=== PATIENT | female | born 1990 | race Caucasian/White ===

== ENCOUNTER 2021-10-20 03:52 | Emergency (ER) | payer OTHER ==
[~2021-10-20] VITALS: Ht 165.1 cm; Wt 130.2 kg
[2021-10-20 04:06] VITALS: BP 139/87
--- NOTE | 2021-10-20 04:06 | NUR ---
Note undone in EDM - 10/20/21 at 0620 by CECIL Patient discharged with v/s stable. Written and verbal after care instructions given and explained. Patient alert, oriented and verbalized understanding of instructions. Ambulatory with steady gait. All questions addressed prior to discharge. ID band removed. Patient advised to follow up with PMD. Rx of SAMIR STANTON given. Patient educated on indication of medication including possible reaction and side effects. Opportunity to ask questions provided and answered.
--- NOTE | 2021-10-20 04:18 | NUR ---
patient ambulated to bed 9
--- NOTE | 2021-10-20 04:23 | NUR ---
31 yo/f bib self w c/o epigastric pain sharp x1 day int non rad s/p eating a hot dog. Pt denies any fevers/chills, n/v/d, or urinary problems. Pt took alkazeltzer w mild relief. ERMD at bedside assessing pt. PMH: denies Allergies: denies
--- NOTE | 2021-10-20 04:30 | NUR ---
pt ambulated to bathroom w steady gait.
[2021-10-20] MEDS ORDERED: DICYCLOMINE HCL LIQUID 20 MG, ALUMINUM HYD/MAG/SIMETHICONE 30 ML, LIDOCAINE VISCOUS 2% ... PO ONE ×3 (04:40)
[2021-10-20] MEDS ORDERED: KETOROLAC 30 MG/ML VIAL IM ONE (04:40)
[2021-10-20] MEDS ORDERED: ALUMINUM HYD/MAG/SIMETHICONE 30 ML UDC ONE (04:45)
[2021-10-20] MEDS ORDERED: DICYCLOMINE HCL LIQUID 10 MG/5 ML UDC ONE (04:45)
--- NOTE | 2021-10-20 05:07 | NUR ---
BLOOD DRAWN HANDED TO [facility] FROM LAB
[2021-10-20 05:21] LABS: BASOPHILS # (AUTO) 0.1 K/uL (0.00-0.22); BASOPHILS % (AUTO) 0.6 % (0.0-2.0); EOSINOPHILS # (AUTO) 0.2 K/uL (0-0.4); EOSINOPHILS % (AUTO) 1.4 % (0.0-4.0); HEMATOCRIT 41.3 % (36-48); HEMOGLOBIN 13.5 g/dL (12.0-16.0); LYMPHOCYTES # (AUTO) 2.6 K/uL (2.5-16.5); LYMPHOCYTES % (AUTO) 24.3 % (20.5-51.1); MEAN CORPUSCULAR HEMOGLOBIN 28 pg (27-31); MEAN CORPUSCULAR HGB CONC 33 g/dL (33-37); MEAN CORPUSCULAR VOLUME 86.6 fL (80-94); MONOCYTES # (AUTO) 0.6 K/uL (0.8-1.0); NEUTROPHILS # (AUTO) 7.4 K/uL (1.8-7.7); NEUTROPHILS % (AUTO) 67.7 % (42.2-75.2); PLATELET COUNT (AUTO) 353 K/uL (140-450); RED BLOOD CELL COUNT(AUTO) 4.77 MIL/uL (4.20-5.40); RED CELL DISTRIBUTION WIDTH 13.8 % (11.6-13.7); WHITE BLOOD COUNT (AUTO) 10.8 K/uL (4.8-10.8)
[2021-10-20 05:42] LABS: ALBUMIN 3.3 g/dL (3.4-5.0); ANION GAP 10.9 (8-16); CARBON DIOXIDE 26.9 mmol/L (21-32); CREATININE 0.8 mg/dL (0.6-1.3); POTASSIUM 3.8 mmol/L (3.5-5.1); TOTAL BILIRUBIN 0.4 mg/dL (0.0-1.0)
[2021-10-20] MEDS ORDERED: MAG-27 PO (05:54)
[2021-10-20] MEDS ORDERED: BEN10 PO (05:54)
[2021-10-20 06:11] VITALS: BP 139/87
--- NOTE | 2021-10-20 06:11 | NUR ---
Patient discharged with v/s stable. Written and verbal after care instructions given and explained. Patient alert, oriented and verbalized understanding of instructions. Ambulatory with steady gait. All questions addressed prior to discharge. ID band removed. Patient advised to follow up with PMD. Rx of SAMIR STANTON given. Patient educated on indication of medication including possible reaction and side effects. Opportunity to ask questions provided and answered.
== END 2021-10-20 06:11 | disposition home or self-care (01) ==
LOC: MED 03:52
DX: R10.10 Upper abdominal pain, unspecified (principal); R06.00 Dyspnea, unspecified; Z79.899 Other long term (current) drug therapy
CPT/HCPCS: 36415; 80053; 81002; 81025; 83690; 85025; 96372; 99283; J1885

== ENCOUNTER 2021-10-22 09:47 | Emergency (ER) | payer OTHER ==
[~2021-10-22] VITALS: Ht 170.2 cm; Wt 130.6 kg
[~2021-10-22 09:47] MED LIST: BEN10 PO; MAG-27 PO
[2021-10-22 09:48] VITALS: BP 133/78
--- NOTE | 2021-10-22 10:01 | NUR ---
PT AMBULATED TO ER BED 10
--- NOTE | 2021-10-22 10:19 | NUR ---
31 y/o female, c/o epigastric pain 01/27 that started 0800 with nausea and vomiting. denies anyone else sick at home with same s/s. PT STATED ATE YOGURT THIS MORNING AND THEN TOOK DICYCLOMINE. AFTER HER STOMACH GOT UPSET AND SHE VOMITED SHORTHLY AFTER THIS MORNING. NOT ACTIVELY NAUSEOUS OR VOMITING. PT IS NOT EXPERIENCING PAIN ANYWHERE ELSE. PT RESTING IN BED. pmh: denies nka med: dicyclomine
--- NOTE | 2021-10-22 11:03 | NUR ---
DR BROWN AT BEDSIDE FOR EVAL
[2021-10-22] MEDS ORDERED: ONDANSETRON 4 MG TAB PO ONE (11:10)
[2021-10-22] MEDS ORDERED: DICYCLOMINE HCL LIQUID 20 MG, ALUMINUM HYD/MAG/SIMETHICONE 30 ML, LIDOCAINE VISCOUS 2% ... PO ONE ×3 (11:15)
[2021-10-22] MEDS ORDERED: ALUMINUM HYD/MAG/SIMETHICONE 30 ML UDC ONE (11:21)
[2021-10-22] MEDS ORDERED: DICYCLOMINE HCL LIQUID 10 MG/5 ML UDC ONE (11:21)
--- NOTE | 2021-10-22 11:44 | NUR ---
LAB AT BEDSIDE
[2021-10-22 11:53] LABS: BASOPHILS # (AUTO) 0.1 K/uL (0.00-0.22); BASOPHILS % (AUTO) 0.5 % (0.0-2.0); EOSINOPHILS # (AUTO) 0.1 K/uL (0-0.4); EOSINOPHILS % (AUTO) 0.7 % (0.0-4.0); HEMATOCRIT 40.2 % (36-48); HEMOGLOBIN 13.2 g/dL (12.0-16.0); LYMPHOCYTES # (AUTO) 1.8 K/uL (2.5-16.5); LYMPHOCYTES % (AUTO) 12.7 % (20.5-51.1); MEAN CORPUSCULAR HEMOGLOBIN 29 pg (27-31); MEAN CORPUSCULAR HGB CONC 33 g/dL (33-37); MEAN CORPUSCULAR VOLUME 86.6 fL (80-94); MONOCYTES # (AUTO) 0.7 K/uL (0.8-1.0); MONOCYTES % (AUTO) 5.2 % (1.7-9.3); NEUTROPHILS # (AUTO) 11.3 K/uL (1.8-7.7); NEUTROPHILS % (AUTO) 80.9 % (42.2-75.2); PLATELET COUNT (AUTO) 373 K/uL (140-450); RED BLOOD CELL COUNT(AUTO) 4.65 MIL/uL (4.20-5.40); RED CELL DISTRIBUTION WIDTH 13.8 % (11.6-13.7); WHITE BLOOD COUNT (AUTO) 13.9 K/uL (4.8-10.8)
[2021-10-22 12:12] LABS: ALBUMIN 3.4 g/dL (3.4-5.0); ANION GAP 11.3 (8-16); CARBON DIOXIDE 26.8 mmol/L (21-32); CREATININE 0.8 mg/dL (0.6-1.3); POTASSIUM 4.1 mmol/L (3.5-5.1); TOTAL BILIRUBIN 0.5 mg/dL (0.0-1.0)
--- NOTE | 2021-10-22 12:18 | NUR ---
ULTRASOUND AT BEDSIDE
[2021-10-22] MEDS ORDERED: ACET-8386 PO (13:53)
[2021-10-22] MEDS ORDERED: HYDROcodone/APAP 5/325 MG 1 TAB TAB PO ONE (13:55)
[2021-10-22 14:21] VITALS: BP 131/77
--- NOTE | 2021-10-22 14:21 | NUR ---
Patient discharged with v/s stable. Written and verbal after care instructions ABOUT CHOLELITHIASIS given and explained. Patient alert, oriented and verbalized understanding of instructions. Ambulatory with steady gait. All questions addressed prior to discharge. ID band removed. Patient advised to follow up with PMD. Rx of NORCO 5-325MG given. Patient educated on indication of medication including possible reaction and side effects. Opportunity to ask questions provided and answered.
== END 2021-10-22 14:21 | disposition home or self-care (01) ==
LOC: MED 09:47
DX: K80.20 Calculus of gallbladder without cholecystitis without obstruction (principal); Z79.899 Other long term (current) drug therapy
CPT/HCPCS: 36415; 76705; 80053; 81002; 81025; 82150; 83690; 85025; 99284; Q0092; Q0162